=== PATIENT | male | born 1950 | race Asian ===

== ENCOUNTER → 2018-01-19 | Outpatient (CLI) | payer MEDICARE, OTHER | END | disposition home or self-care (01) | LOC: RADPV 09:17 | PROVIDERS: ATTEND Internal Medicine Nephrology | DX: N18.9 Chronic kidney disease, unspecified (principal) | CPT/HCPCS: 76770 ==

== ENCOUNTER 2022-03-29 00:23 | Inpatient (IN) | payer MEDICARE, OTHER ==
[~2022-03-29] VITALS: Ht 170.2 cm; Wt 57.9 kg
[2022-03-29] VITALS (26 sets, daily range): BP systolic 118–185; BP diastolic 31–98
[2022-03-29 00:41] LABS: BASOPHILS % (AUTO) 1.3 % (0.0-2.0); EOSINOPHILS % (AUTO) 2.6 % (1.0-6.0); HEMATOCRIT 43.9 % (41-53); HEMOGLOBIN 15.1 g/dL (13.5-17.5); LYMPHOCYTES # (AUTO) 4.1 K/uL (1.0-4.8); LYMPHOCYTES % (AUTO) 37.9 % (22.0-44.0); MEAN CORPUSCULAR HEMOGLOBIN 30.9 pg (26.0-34.0); MEAN CORPUSCULAR HGB CONC 34.5 G/dL (31.0-37.0); MEAN CORPUSCULAR VOLUME 90 fL (80-100); MONOCYTES % (AUTO) 8.8 % (2.0-9.0); NEUTROPHILS # (AUTO) 5.3 K/uL (1.8-7.7); NEUTROPHILS % (AUTO) 49.4 % (40.0-70.0); PLATELET COUNT (AUTO) 193 K/uL (150-450); RED CELL DISTRIBUTION WIDTH 13.9 % (11.5-14.5)
[2022-03-29 00:42] LABS: COVID AG,FIA SOURCE NASOPHARYNGEAL
[2022-03-29] MEDS ORDERED: HEPARIN SODIUM,PORCINE 5,000 UNITS/ML VIAL IVP ONE (01:00)
[2022-03-29] MEDS ORDERED: ATEN-73 PO (01:00)
[2022-03-29] MEDS ORDERED: ALOG1TAB5 PO (01:00)
[2022-03-29] MEDS ORDERED: OMEP20 PO (01:00)
[2022-03-29] MEDS ORDERED: ALLO-97 PO (01:00)
[2022-03-29] MEDS ORDERED: ATORVASTATIN CALCIUM 40 MG TABLET PO ONE (01:00)
[2022-03-29] MEDS ORDERED: AMLO-258 PO (01:00)
[2022-03-29] MEDS ORDERED: TICAGRELOR 90 MG TABLET PO ONE (01:00)
[2022-03-29] MEDS ORDERED: LOSA-382 PO (01:00)
[2022-03-29 01:11] LABS: GLUCOMETER DEV NAME(LOC) ERT.5; GLUCOSE,POINT OF CARE 179 MG/DL (70-110)
[2022-03-29 01:11] LABS: CALCIUM, TOTAL 9.6 mg/dL (8.8-10.5); CREATININE 1.4 mg/dL (0.60-1.30); POTASSIUM 3.9 mmol/L (3.5-5.1)
[2022-03-29] MEDS ORDERED: ONDANSETRON HCL 4 MG/2 ML VIAL IVP PRN ×2 (01:15→01:45)
[2022-03-29] MEDS ORDERED: 0.9% SODIUM CHLORIDE 10 ML SYRINGE IVP PRN (01:15)
[2022-03-29] MEDS ORDERED: ACETAMINOPHEN 325 MG TABLET PO PRN ×2 (01:15→01:45)
[2022-03-29 01:17] LABS: ALBUMIN 4.2 g/dL (3.4-5.0); BILIRUBIN,TOTAL 0.4 mg/dL (0.1-1.0); TOTAL PROTEIN, SERUM 8.6 g/dL (6.4-8.2)
[2022-03-29 01:37] LABS: PROTHROMBIN TIME 10.6 SEC (9.4-11.6)
[2022-03-29] MEDS ORDERED: MORPHINE SULFATE 2 MG/ML SYRINGE IVP PRN (01:45)
[2022-03-29] MEDS ORDERED: DEXTROSE 50%-WATER 25 GM/50 ML SYRINGE IVP PRN (02:00)
[2022-03-29] MEDS ORDERED: NITROGLYCERIN 50 MG/D5% WATER 250 ML ONE (02:24)
[2022-03-29 02:47] LABS: HEMOGLOBIN A1C 6.9 % (3.8-5.6)
[2022-03-29 02:50] LABS: CHOL/HDL RATIO 5.4 (4.2-7.3); CHOLESTEROL 209 mg/dL (131-200); HDL CHOLESTEROL 39 mg/dL (40-60); TRIGLYCERIDES 442 mg/dL (15-150)
[2022-03-29] MEDS ORDERED: SODIUM CHLORIDE 0.9% 1,750 ML IV ONE (03:15)
[2022-03-29 04:45] LABS: BASOPHILS % (AUTO) 0.8 % (0.0-2.0); EOSINOPHILS % (AUTO) 0.5 % (1.0-6.0); HEMATOCRIT 39.8 % (41-53); HEMOGLOBIN 13.5 g/dL (13.5-17.5); LYMPHOCYTES # (AUTO) 1.3 K/uL (1.0-4.8); LYMPHOCYTES % (AUTO) 15.3 % (22.0-44.0); MEAN CORPUSCULAR HEMOGLOBIN 30.4 pg (26.0-34.0); MEAN CORPUSCULAR HGB CONC 33.9 G/dL (31.0-37.0); MEAN CORPUSCULAR VOLUME 90 fL (80-100); MONOCYTES # (AUTO) 0.5 K/uL (0.1-1.0); MONOCYTES % (AUTO) 5.7 % (2.0-9.0); NEUTROPHILS # (AUTO) 6.4 K/uL (1.8-7.7); NEUTROPHILS % (AUTO) 77.7 % (40.0-70.0); PLATELET COUNT (AUTO) 197 K/uL (150-450); RED BLOOD CELL COUNT(AUTO) 4.44 MIL/uL (4.50-5.90); RED CELL DISTRIBUTION WIDTH 13.6 % (11.5-14.5)
[2022-03-29 04:54] LABS: CALCIUM, TOTAL 8.9 mg/dL (8.8-10.5); CREATININE 1.36 mg/dL (0.60-1.30)
[2022-03-29 05:00] LABS: ALBUMIN 3.7 g/dL (3.4-5.0); BILIRUBIN,TOTAL 0.4 mg/dL (0.1-1.0); TOTAL PROTEIN, SERUM 7.5 g/dL (6.4-8.2)
[2022-03-29] MEDS: INSULIN LISPRO 100 UNITS/ML SQ PRN ×2 (06:32→12:52)
[2022-03-29 06:51] LABS: GLUCOSE,POINT OF CARE 159 MG/DL (70-110)
[2022-03-29 08:19] LABS: HEMATOCRIT 39.8 % (41-53); HEMOGLOBIN 13.5 g/dL (13.5-17.5)
[2022-03-29] MEDS ORDERED: TICAGRELOR 90 MG TABLET PO SCH (09:00)
[2022-03-29] MEDS ORDERED: ASPIRIN 81 MG CHEWABLE TABLET PO SCH (09:00)
[2022-03-29] MEDS ORDERED: ATORVASTATIN CALCIUM 40 MG TABLET PO SCH (09:00)
[2022-03-29] MEDS ORDERED: AmLODIPine BESYLATE 10 MG TABLET PO SCH ×2 (09:00→21:00)
[2022-03-29] MEDS: ETHYL ALCOHOL 62% ANTISEPTIC NASAL SANITIZER 0.6 ML AMPUL NASAL SCH ×2 (09:21→20:57)
[2022-03-29] MEDS: ASPIRIN 81 MG CHEWABLE TABLET PO SCH (09:21)
[2022-03-29] MEDS: LOSARTAN POTASSIUM 50 MG TABLET PO SCH (09:21)
[2022-03-29] MEDS: ATENOLOL 25 MG TABLET PO SCH (09:21)
[2022-03-29] MEDS: METOPROLOL SUCCINATE 50 MG ER TABLET PO SCH (09:22)
[2022-03-29] MEDS: TICAGRELOR 90 MG TABLET PO SCH ×2 (09:22→20:58)
[2022-03-29] MEDS: ISOSORBIDE MONONITRATE 30 MG ER TABLET PO SCH (09:23)
[2022-03-29] MEDS: ALLOPURINOL 100 MG TABLET PO SCH (09:23)
[2022-03-29] MEDS: OMEPRAZOLE 20 MG CAPSULE PO SCH ×2 (11:00→20:58)
[2022-03-29] MEDS ORDERED: HEPARIN SODIUM 1000 UNITS/NS 1,000 ML ONE (12:43)
[2022-03-29] MEDS ORDERED: SODIUM BICARBONATE 50 MEQ/50 ML VIAL ONE (12:43)
[2022-03-29 13:51] LABS: GLUCOSE,POINT OF CARE 160 MG/DL (70-110)
[2022-03-29] MEDS: ATORVASTATIN CALCIUM 40 MG TABLET PO SCH (20:58)
[2022-03-29 23:46] LABS: GLUCOSE,POINT OF CARE 111 MG/DL (70-110)
[2022-03-29 23:46] LABS: GLUCOSE,POINT OF CARE 194 MG/DL (70-110)
[2022-03-30] VITALS: BP 124/70
[2022-03-30 04:00] VITALS: BP 128/56
[2022-03-30] MEDS ORDERED: HEPARIN SODIUM,PORCINE 1,000 UNITS/ML 10 ML VIAL IVP ONE (06:02)
[2022-03-30] MEDS ORDERED: MIDAZOLAM HCL 2 MG/2 ML VIAL IVP ONE (06:02)
[2022-03-30] MEDS ORDERED: FentaNYL CITRATE PF 100 MCG/2 ML VIAL IVP ONE (06:02)
[2022-03-30 06:09] LABS: BASOPHILS % (AUTO) 0.8 % (0.0-2.0); EOSINOPHILS % (AUTO) 2.1 % (1.0-6.0); HEMATOCRIT 41.1 % (41-53); HEMOGLOBIN 13.8 g/dL (13.5-17.5); LYMPHOCYTES # (AUTO) 2.4 K/uL (1.0-4.8); LYMPHOCYTES % (AUTO) 26.7 % (22.0-44.0); MEAN CORPUSCULAR HEMOGLOBIN 30.2 pg (26.0-34.0); MEAN CORPUSCULAR HGB CONC 33.6 G/dL (31.0-37.0); MEAN CORPUSCULAR VOLUME 90 fL (80-100); MONOCYTES # (AUTO) 0.9 K/uL (0.1-1.0); MONOCYTES % (AUTO) 10.2 % (2.0-9.0); NEUTROPHILS # (AUTO) 5.5 K/uL (1.8-7.7); NEUTROPHILS % (AUTO) 60.2 % (40.0-70.0); PLATELET COUNT (AUTO) 183 K/uL (150-450); RED BLOOD CELL COUNT(AUTO) 4.58 MIL/uL (4.50-5.90); RED CELL DISTRIBUTION WIDTH 13.8 % (11.5-14.5)
[2022-03-30 06:23] LABS: CALCIUM, TOTAL 9.2 mg/dL (8.8-10.5); CREATININE 1.31 mg/dL (0.60-1.30); MAGNESIUM 1.9 mg/dL (1.80-2.40); POTASSIUM 4.6 mmol/L (3.5-5.1)
[2022-03-30 08:00] VITALS: BP 137/76
[2022-03-30] MEDS: ETHYL ALCOHOL 62% ANTISEPTIC NASAL SANITIZER 0.6 ML AMPUL NASAL SCH (08:05)
[2022-03-30] MEDS: TICAGRELOR 90 MG TABLET PO SCH (08:05)
[2022-03-30] MEDS: OMEPRAZOLE 20 MG CAPSULE PO SCH (08:05)
[2022-03-30] MEDS: ASPIRIN 81 MG CHEWABLE TABLET PO SCH (08:05)
[2022-03-30] MEDS: LOSARTAN POTASSIUM 50 MG TABLET PO SCH (08:06)
[2022-03-30] MEDS: ATENOLOL 25 MG TABLET PO SCH (08:06)
[2022-03-30] MEDS: ALLOPURINOL 100 MG TABLET PO SCH (08:06)
[2022-03-30] MEDS: ATORVASTATIN CALCIUM 40 MG TABLET PO SCH (08:06)
[2022-03-30] MEDS: ISOSORBIDE MONONITRATE 30 MG ER TABLET PO SCH (08:06)
[2022-03-30] MEDS: METOPROLOL SUCCINATE 50 MG ER TABLET PO SCH (08:06)
[2022-03-30] MEDS ORDERED: METO-558 PO (11:40)
[2022-03-30] MEDS ORDERED: ASPI-1450 PO (11:41)
[2022-03-30] MEDS ORDERED: TICA90TA PO (11:41)
[2022-03-30] MEDS ORDERED: LOSA-382 PO (11:41)
[2022-03-30] MEDS ORDERED: ATOR40TA28 PO (11:48)
[2022-03-30] MEDS ORDERED: ISOS30TA92 PO (11:48)
[2022-03-30] MEDS ORDERED: AMLO-258 PO (11:48)
[2022-03-30 12:00] VITALS: BP 143/76
== END 2022-03-30 12:15 | disposition home or self-care (01) | DRG 246 ==
LOC: EMS 00:30 → 5S 00:59 → UNDOADMIN 00:59 → ICU 02:59
PROVIDERS: ADMIT Internal Medicine; ATTEND Internal Medicine
PROC: 4A023N7 Measurement of Cardiac Sampling and Pressure, Left Heart, Percutaneous Approach (ICD-10-PCS; principal; 2022-03-29)
PROC: 027034Z Dilation of Coronary Artery, One Artery with Drug-eluting Intraluminal Device, Percutaneous Approach (ICD-10-PCS; 2022-03-29)
PROC: 02703ZZ Dilation of Coronary Artery, One Artery, Percutaneous Approach (ICD-10-PCS; 2022-03-29)
PROC: B2111ZZ Fluoroscopy of Multiple Coronary Arteries using Low Osmolar Contrast (ICD-10-PCS; 2022-03-29)
PROC: B2151ZZ Fluoroscopy of Left Heart using Low Osmolar Contrast (ICD-10-PCS; 2022-03-29)
DX: I21.19 ST elevation (STEMI) myocardial infarction involving other coronary artery of inferior wall (principal); I50.33 Acute on chronic diastolic (congestive) heart failure; N17.9 Acute kidney failure, unspecified; E11.22 Type 2 diabetes mellitus with diabetic chronic kidney disease; E78.5 Hyperlipidemia, unspecified; I12.9 Hypertensive chronic kidney disease with stage 1 through stage 4 chronic kidney disease, or unspecified chronic kidney disease; N18.30 Chronic kidney disease, stage 3 unspecified; I25.10 Atherosclerotic heart disease of native coronary artery without angina pectoris; Z20.822 Contact with and (suspected) exposure to COVID-19; Z79.4 Long term (current) use of insulin
CPT/HCPCS: 71045; 80048; 80053; 80061; 82550; 82962; 83036; 83735; 83880; 84484; 85014; 85018; 85025; 85610; 85730; 86850; 86900; 86901; 87081; 92920; 92928; 93005; 93306; 99291; G0378; J1644; J2250; J3010; J3490; J7030; 36415-L1; 36415-TC